=== PATIENT | male | born 1960 | race Caucasian/White ===

== ENCOUNTER 2019-07-05 16:51 | Emergency (ER) | payer OTHER, SELFPAY ==
[~2019-07-05] VITALS: Ht 172.7 cm; Wt 99.8 kg
[~2019-07-05 16:51] MED LIST: ABAT250V; ALBU3IS INH; ALBU8HFA2 INH; ALBU90I INH; ALBU90OI INH; AMLO5 PO; AMOCLA875 PO; ARFORMOTEROL 15 MCG; ATOR20 PO; AZIT250 PO; AZIT500 PO; Acetaminophen325 M1 PO; BUDE.25 NEB; BUDE.5 NEB; CALCIUM 600 +1 EAC3 PO; CEFP200 PO; CEFU500 PO; DELTASONE20 MG PO; FLUSAL2505 IH; FLUSAL5005 MT; HYDCHL25 PO; LAVAP17G PO; LEVFLO500 PO; LISHYD2025 PO; LISI20 PO; LISI5 PO; METF500C PO; MONT10T PO; NAC600 MG PO; NUTRISOURCE FIBE4 GM PO; OMEP20ER PO; OMEPRAZOLE MAGN20 MG PO; Omeprazole20 M1 PO; PRED10 PO; PRED20 PO
[2019-07-05] MEDS ORDERED: ZESTORETIC 20-121 EA (17:16)
[2019-07-05 17:42] LABS: BASOPHILS ABSOLUTE AUTO 0.04 K/mm3 (0.00-0.23); BASOPHILS PERCENT AUTO 0 % (0-2); EOSINOPHILS ABSOLUTE AUTO 2.29 K/mm3 (0.00-0.68); EOSINOPHILS PERCENT AUTO 24 % (0-6); Hemoglobin 13.7 g/dL (13.5-17.5); IMMATURE GRAN ABSOLUTE AUTO 0.03 K/mm3 (0.00-0.10); IMMATURE GRAN PERCENT AUTO 0 % (0-1); LYMPHOCYTES ABSOLUTE AUTO 1.44 K/mm3 (0.84-5.20); LYMPHOCYTES PERCENT AUTO 15 % (21-46); MONOCYTES ABSOLUTE AUTO 1.01 K/mm3 (0.16-1.47); MONOCYTES PERCENT AUTO 11 % (4-13); Mean Corpuscular HGB 30.4 pg (26.0-34.0); Mean Corpuscular HGB Conc 32.6 g/dL (31.5-36.5); Mean Corpuscular Volume 93 fL (80-100); Mean Platelet Volume 10.1 fL (9.1-12.4); NEUTROPHILS ABSOLUTE AUTO 4.68 K/mm3 (1.96-9.15); NEUTROPHILS PERCENT AUTO 49 % (41-73); Platelet Count 260 K/mm3 (150-400); RDW Coefficient Variation 13.5 % (11.7-14.2); RDW Standard Deviation 46.5 fL (35.1-46.3); White Blood Cell Count 9.49 K/mm3 (4.00-11.30)
[2019-07-05 19:38] LABS: Troponin I <0.015 ng/mL (0.000-0.040)
[2019-07-05 19:39] LABS: Alanine Aminotransfer (ALT/SGP 51 U/L (12-78); Albumin, Blood 3.5 g/dL (3.4-5.0); Albumin/Globulin Ratio 0.9 (0.8-1.8); Alk Phos 60 U/L (50-136); Anion Gap 8 mmol/L (6-16); Aspartate Aminotrans (AST/SGOT 40 U/L (12-37); Bilirubin, Total 0.3 mg/dL (0.1-1.0); Blood Urea Nitrogen 16 mg/dL (8-24); Bun/Creatinine Ratio 18.4 (12.0-20.0); CO2, Blood 30 mmol/L (21-32); Calcium, Blood 8.6 mg/dL (8.5-10.1); Chloride, Blood 104 mmol/L (98-108); Creatinine, Blood 0.87 mg/dL (0.60-1.20); Globulin, Blood 3.8 g/dL (2.2-4.0); Glomerular Filtration Rate >60 (60-); Glucose, Blood 101 mg/dL (70-99); Potassium, Blood 3.5 mmol/L (3.5-5.5); Sodium, Blood 142 mmol/L (136-145); Total Protein, Blood 7.3 g/dL (6.4-8.2)
[2019-07-05] MEDS ORDERED: Prednisone20 MG PO (19:41)
== END 2019-07-05 20:10 | disposition home or self-care (01) ==
LOC: ER 16:51
PROVIDERS: Emergency Medicine
DX: J45.901 Unspecified asthma with (acute) exacerbation (principal); I10 Essential (primary) hypertension; K21.9 Gastro-esophageal reflux disease without esophagitis; Z79.899 Other long term (current) drug therapy; Z79.84 Long term (current) use of oral hypoglycemic drugs
CPT/HCPCS: 36415; 80053; 84484; 85025; 93005; 93010; 94640; 96374; 99284-25; J2930

== ENCOUNTER 2019-09-26 11:09 | Emergency (ER) | payer OTHER, SELFPAY ==
[~2019-09-26] VITALS: Ht 162.6 cm; Wt 90.7 kg
[~2019-09-26 11:09] MED LIST changes: +Prednisone20 MG PO; +ZESTORETIC 20-121 EA
[2019-09-26 11:44] LABS: BASOPHILS ABSOLUTE AUTO 0.07 K/mm3 (0.00-0.23); BASOPHILS PERCENT AUTO 1 % (0-2); EOSINOPHILS PERCENT AUTO 8 % (0-6); Hematocrit 44.2 % (37.0-53.0); Hemoglobin 14.3 g/dL (13.5-17.5); IMMATURE GRAN ABSOLUTE AUTO 0.03 K/mm3 (0.00-0.10); IMMATURE GRAN PERCENT AUTO 0 % (0-1); LYMPHOCYTES ABSOLUTE AUTO 1.57 K/mm3 (0.84-5.20); LYMPHOCYTES PERCENT AUTO 15 % (21-46); MONOCYTES ABSOLUTE AUTO 1.16 K/mm3 (0.16-1.47); MONOCYTES PERCENT AUTO 11 % (4-13); Mean Corpuscular HGB 29.9 pg (26.0-34.0); Mean Corpuscular HGB Conc 32.4 g/dL (31.5-36.5); Mean Corpuscular Volume 93 fL (80-100); Mean Platelet Volume 9.9 fL (9.1-12.4); NEUTROPHILS ABSOLUTE AUTO 6.68 K/mm3 (1.96-9.15); NEUTROPHILS PERCENT AUTO 65 % (41-73); Platelet Count 336 K/mm3 (150-400); RDW Coefficient Variation 14.1 % (11.7-14.2); RDW Standard Deviation 48.7 fL (35.1-46.3); Red Blood Cell Count 4.78 M/mm3 (4.30-5.90); White Blood Cell Count 10.31 K/mm3 (4.00-11.30)
[2019-09-26 11:55] LABS: Anion Gap 7 mmol/L (6-16); Blood Urea Nitrogen 18 mg/dL (8-24); Bun/Creatinine Ratio 20.5 (12.0-20.0); CO2, Blood 31 mmol/L (21-32); Calcium, Blood 9.1 mg/dL (8.5-10.1); Chloride, Blood 104 mmol/L (98-108); Creatinine, Blood 0.88 mg/dL (0.60-1.20); Glomerular Filtration Rate >60 (60-); Glucose, Blood 106 mg/dL (70-99); Potassium, Blood 3.5 mmol/L (3.5-5.5); Sodium, Blood 142 mmol/L (136-145); Troponin I <0.015 ng/mL (0.000-0.040)
[2019-09-26] MEDS ORDERED: Prednisone20 MG PO (13:34)
[2019-09-26] MEDS ORDERED: Zithromax250 MG PO (13:34)
== END 2019-09-26 13:50 | disposition home or self-care (01) ==
LOC: ER 11:09
PROVIDERS: Emergency Medicine
DX: J44.0 Chronic obstructive pulmonary disease with (acute) lower respiratory infection (principal); J20.9 Acute bronchitis, unspecified; J44.1 Chronic obstructive pulmonary disease with (acute) exacerbation; Z79.899 Other long term (current) drug therapy; Z79.84 Long term (current) use of oral hypoglycemic drugs
CPT/HCPCS: 71046; 80048; 84484; 85025; 93005; 93010; 94640; 96360; 99284-25; J7030

== ENCOUNTER → 2023-08-03 | Outpatient (CLI) | payer OTHER ==
[~2023-08-03] MED LIST changes: +AMLODIPINE BESYL5 MG PO; +FLUTICASONE-SA1 EAC5; +FLUTICASONE-SA1 EAC5 INH; +Lisinopril-Hct1 EAC4 PO; +Ventolin/Prove6.7 GM; +Zithromax250 MG PO
== END ==
LOC: LAB 11:45 → LAB SHORT 11:45
DX: M17.12 Unilateral primary osteoarthritis, left knee (principal)
CPT/HCPCS: 87070

== ENCOUNTER 2023-10-27 07:39 | Day surgery (SDC) | payer OTHER ==
[2023-10-27] VITALS (14 sets, daily range): BP systolic 102–146; BP diastolic 56–92
[~2023-10-27] VITALS: Ht 177.8 cm; Wt 95.6 kg
[~2023-10-27 07:39] MED LIST changes: +GABA300 PO; +MELO7.5 PO; +METF500 PO; -Ventolin/Prove6.7 GM; +Ventolin/Prove6.7 GM INH
[2023-10-27] MEDS ORDERED: FLUTICASONE-SA1 EA10 INH (09:06)
[2023-10-27] MEDS ORDERED: MOBIC15 MG PO (09:07)
[2023-10-27] MEDS ORDERED: VITAMIN D31250 MC2 PO (09:08)
[2023-10-27] MEDS ORDERED: NUCALA40 MG/0.4 SC (09:47)
--- NOTE | 2023-10-27 10:00 | NUR ---
History, Chart, Medications and Allergies reviewed before start of procedure. Pre-Op teaching done. Pt verbalizes understanding. Patient confirms NPO status and agrees with scheduled surgery. Patient reports completing Chlorhexadine shower X2 prior to admission to hospital. Surgical site prepped with 2% Chlorhexidine cloth wipe. Patient States Post-Procedure ride home has been arranged.
--- NOTE | 2023-10-27 10:56 | NUR ---
10/27/23 1056 Rossy Mackenzie SPINAL NERVE BLOCK COMPLETED BY DR. SALCEDO UPON ENTRY TO OR. PT TOLERATED WELL.
[2023-10-27] MEDS ORDERED: ASPI81CH PO (11:31)
--- NOTE | 2023-10-27 13:10 | NUR ---
ARRIVAL TO SURGICAL UNIT VIA HOSPITAL BED. ALERT & PLEASANT, BUT DEVELOPMENTALY DELAYED. UNABLE TO GIVE NUMBERS FOR PAIN. ASSESSMENT CHARTED. DENIES N/V. SNACKS & WATER GIVEN.
--- NOTE | 2023-10-27 20:08 | NUR ---
SHIFT SUMMARY ONCE SPINAL WORE OFF, WAS ABLE TO GET OOB w/ MIN ASSIST. HAS VOIDED, EATING, DRINKING. HAVING DIFFICULTIES w/ PAIN MANAGEMENT, MAKING PROGRESS, PASSED ON IN REPORT.
[2023-10-28 04:29] VITALS: BP 116/66
[2023-10-28 05:59] LABS: BASOPHILS ABSOLUTE AUTO 0.01 K/mm3 (0.00-0.23); BASOPHILS PERCENT AUTO 0 % (0-2); EOSINOPHILS PERCENT AUTO 0 % (0-6); Hematocrit 31.9 % (37.0-53.0); Hemoglobin 10.4 g/dL (13.5-17.5); IMMATURE GRAN ABSOLUTE AUTO 0.06 K/mm3 (0.00-0.10); IMMATURE GRAN PERCENT AUTO 0 % (0-1); LYMPHOCYTES ABSOLUTE AUTO 0.76 K/mm3 (0.84-5.20); LYMPHOCYTES PERCENT AUTO 6 % (21-46); MONOCYTES ABSOLUTE AUTO 1.12 K/mm3 (0.16-1.47); MONOCYTES PERCENT AUTO 8 % (4-13); Mean Corpuscular HGB 30.1 pg (26.0-34.0); Mean Corpuscular HGB Conc 32.6 g/dL (31.5-36.5); Mean Corpuscular Volume 92 fL (80-100); Mean Platelet Volume 9.8 fL (9.1-12.4); NEUTROPHILS ABSOLUTE AUTO 11.95 K/mm3 (1.96-9.15); NEUTROPHILS PERCENT AUTO 86 % (41-73); Platelet Count 281 K/mm3 (150-400); RDW Coefficient Variation 13.8 % (11.7-14.2); RDW Standard Deviation 46.7 fL (35.1-46.3); Red Blood Cell Count 3.46 M/mm3 (4.30-5.90)
[2023-10-28 06:28] LABS: Bun/Creatinine Ratio 27.1 (12.0-20.0); Calcium, Blood 8.6 mg/dL (8.5-10.1); Creatinine, Blood 0.89 mg/dL (0.60-1.20); Potassium, Blood 4.2 mmol/L (3.5-5.5)
[2023-10-28 07:19] VITALS: BP 115/71
--- NOTE | 2023-10-28 07:35 | NUR ---
SHIFT SUMMARY NOC. PT POD 1 FOR LEFT TOTAL KNEE. PT A/O X3 WITH HX OF DEVELOPMENTAL DELAY. PT'S AQUACEL IS C/D/I. PT MEDICATED FOR PAIN AND ASSESSED VIA FLACC SCALE. PT AMBULATES TO THE BR WITH SBA, FWW, AND GAIT BELT. PT VOIDING URINE AND TOLERATING PO. PT RESTED WITH EYES CLOSED AND CALL LIGHT IN REACH.
--- NOTE | 2023-10-28 15:15 | NUR ---
[facility].
--- NOTE | 2023-10-28 15:30 | NUR ---
DISCHARGE TO [facility] PT HAS BEEN DOING VERY WELL. UP IN CHAIR, PAIN WELL MANAGED, EATING, DRINKING, VOIDING. AMBULATING A SBA w/ GB & FWW. RX & AQUACEL SENT w/ PACKET. FAMILY UPDATED & 1 AT SIDE DURING DC.
== END 2023-10-28 15:30 ==
LOC: ORSCMMR 07:39 → ORD 08:15 → ORSCMMR 08:15 → ORD 09:15 → SURS 13:06 → ORSCMMR 10-28 15:30
PROVIDERS: Orthopaedic Surgery
PROC: 0SRD0JA Replacement of Left Knee Joint with Synthetic Substitute, Uncemented, Open Approach (ICD-10-PCS; principal; 2023-10-27 09:15)
DX: M17.12 Unilateral primary osteoarthritis, left knee (principal); E11.9 Type 2 diabetes mellitus without complications; I10 Essential (primary) hypertension; E78.5 Hyperlipidemia, unspecified; Z79.84 Long term (current) use of oral hypoglycemic drugs; Z79.899 Other long term (current) drug therapy
CPT/HCPCS: 36415; 73560-LT; 80048; 82947; 85025; 94640; 94664; 94760; 97110; 97116; 97162; A9270; C1713; C1776; J0171; J0690; J0735; J1100; J1815; J1885; J2250; J2405; J2704; J2795; J3010; J7120